=== PATIENT | male | born 1990 | race Caucasian/White ===

== ENCOUNTER 2021-01-29 00:27 | Emergency (ER) | payer OTHER ==
[~2021-01-29] VITALS: Ht 180.3 cm; Wt 122.5 kg
[2021-01-29 01:31] LABS: HEMATOCRIT 41.3 % (42.0-52.0); HEMOGLOBIN 13.8 gm/dL (14.0-18.0); MCH 28.2 pg (26.0-34.0); MCHC 33.4 g/dL (28.0-37.0); MCV 84.5 fL (80.0-100.0); MPV 7.9 fl. (7.2-11.1); RBC 4.89 mil/uL (4.50-6.00); RDW-CV 13.9 % (10.5-14.5); WBC 10.8 thou/uL (4.0-11.0)
[2021-01-29 01:37] LABS: CALCIUM 8.4 mg/dL (8.5-10.1); CREATININE 0.8 mg/dL (0.6-1.3); POTASSIUM 3.5 mmol/L (3.5-5.1)
[2021-01-29 01:43] LABS: ALBUMIN 3.4 g/dL (3.4-5.0); TOTAL BILIRUBIN 0.1 mg/dL (<0.1-1.0); TOTAL PROTEIN 7.5 g/dL (6.4-8.2)
[2021-01-29 04:22] VITALS: BP 132/68
--- NOTE | 2021-01-29 11:20 | EKG ---
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
== END 2021-01-29 04:22 | disposition home or self-care (01) ==
LOC: M.ERS 00:27
PROVIDERS: Personal Emergency Response Attendant
DX: R07.89 Other chest pain (principal); Z71.1 Person with feared health complaint in whom no diagnosis is made